=== PATIENT | male | born 1950 ===

== ENCOUNTER 2025-03-12 06:00 | Day surgery (SDC) | payer OTHER ==
[2025-03-12] MEDS ORDERED: MIDAZOLAM HCL 2 MG/2 ML VIAL IV ONE (11:15)
[2025-03-12] MEDS ORDERED: fentaNYL CITRATE 50 MCG/ML AMPUL IV ONE (11:15)
[2025-03-12] MEDS ORDERED: DIPHENHYDRAMINE HCL 50 MG/ML VIAL 1ML IV ONE (11:15)
== END 2025-03-12 12:10 | disposition home or self-care (01) ==
LOC: AMB-ENDOS 06:00
PROVIDERS: ATTEND Surgery
DX: D12.3 Benign neoplasm of transverse colon (principal); K63.5 Polyp of colon; K57.30 Diverticulosis of large intestine without perforation or abscess without bleeding